=== PATIENT | female | born 1985 | race Caucasian/White ===

== ENCOUNTER 2019-02-28 20:44 | Emergency (ER) | payer OTHER ==
[~2019-02-28] VITALS: Ht 165.1 cm; Wt 74.8 kg
[2019-02-28] MEDS ORDERED: NORCO 5-325 TA1 EACH PO (22:58)
== END 2019-02-28 23:13 | disposition home or self-care (01) ==
LOC: ED 20:44
DX: M25.512 Pain in left shoulder (principal)
CPT/HCPCS: 73030; 99283-25

== ENCOUNTER 2019-12-23 03:07 | Emergency (ER) | payer OTHER ==
[~2019-12-23] VITALS: Ht 165.1 cm; Wt 79.4 kg
[~2019-12-23 03:07] MED LIST: NORCO 5-325 TA1 EACH PO
--- NOTE | 2019-12-24 17:20 | EKG ---
[facility] [address] [facility] [place], [place] [address] Signed Normal sinus rhythm Nonspecific ST abnormality Abnormal ECG No previous ECGs available Confirmed by ROBERTA GARCIA DO ([id number]) on 12/24/2019 5:20:10 PM Electronically Signed By: ROBERTA GARCIA DO 12/24/19 1720 PATIENT NAME: ASYA LINDSEY Electrocardiogram DATE OF : 83 PHYSICIAN: ROBERTA GARCIA DO REPORT #: [id number] REPORT IS CONFIDENTIAL AND NOT TO BE RELEASED WITHOUT AUTHORIZATION
== END 2019-12-23 04:13 | disposition home or self-care (01) ==
LOC: ED 03:07
DX: G56.02 Carpal tunnel syndrome, left upper limb (principal); I10 Essential (primary) hypertension; Z87.891 Personal history of nicotine dependence
CPT/HCPCS: 71045; 80053; 83735; 84484; 85025; 93005; 93010; 99284-25